=== PATIENT | male | born 1955 | race Caucasian/White ===

== ENCOUNTER → 2019-09-26 12:41 | Outpatient (BNVA) | payer BC, MEDICARE, SELFPAY | PROVIDERS: Visit Provider Internal Medicine | DX: Z20.828 Contact with and (suspected) exposure to other viral communicable diseases (principal) | CPT/HCPCS: 87635 ==

== ENCOUNTER 2020-01-19 06:00 | Outpatient (RCR) | payer MEDICARE, SELFPAY | END 2020-02-16 23:59 | disposition home or self-care (01) | LOC: SPT 06:00 | PROVIDERS: PCP Family Medicine; Referring Provider Family Medicine; Visit Provider Family Medicine | DX: M54.9 Dorsalgia, unspecified (principal) | CPT/HCPCS: 97110; 97161; G0283 ==

== ENCOUNTER 2020-02-17 06:00 | Outpatient (RCR) | payer MEDICARE, SELFPAY | END 2020-02-22 11:35 | disposition home or self-care (01) | LOC: SPT 06:00 | PROVIDERS: PCP Family Medicine; Referring Provider Family Medicine; Visit Provider Family Medicine | DX: M54.89 Other dorsalgia (principal) | CPT/HCPCS: 97110; G0283 ==

== ENCOUNTER 2020-04-17 14:48 | Outpatient (CLI) | payer MEDICARE, SELFPAY ==
--- NOTE | 2020-04-17 15:06 | MR_ITS ---
WS: [id number] MRI LUMBAR SPINE NONCONTRAST TECHNIQUE: Sagittal T1, T2 and STIR imaging. Axial T1 and T2 imaging. CLINICAL INFORMATION: BACK PAIN, CHRONIC COMPARISON: None. FINDINGS: Mild lumbar curve. No acute compression. No high-grade central canal stenosis. L1-L2: Mild annular bulging with slight narrowing of the left subarticular recess. Mild facet arthrop athy. Spinal canal and foramen are patent. L2-L3: Mild annular bulging with slight effacement of the ventral thecal sac. Slight impingement on t he right subarticular recess and traversing right L3 nerve root. Mild left and no significant right f oraminal narrowing. Mild facet arthropathy. L3-L4: Mild disc bulging with slight effacement of ventral thecal sac. Slight impingement right subar ticular recess and traversing right L4 nerve root. Mild left and no significant right foraminal narro wing. L4-L5: Minimal disc bulging. Moderate facet arthropathy. Mild left and no significant right foraminal narrowing. Spinal canal is patent. L5-S1: Mild annular bulging with slight effacement of ventral thecal sac. Mild left and no significan t right foraminal narrowing. Mild facet arthropathy. Spinal canal is patent. Peripelvic renal cysts. MR/MR lumbar spine wo con* [id number] IMPRESSION: 1. Mild lumbar curve. No acute compression. No high-grade central canal stenos is. 2. Mild annular bulging L2-3 and L3-4 with impingement on the right subarticul ar recess and traversing right L3 and L4 nerve roots respectively. 3. Mild foraminal narrowing left L4-L5 and left L5-S1. 4. Mild facet arthropathy L3-L5.
== END 2020-04-17 14:49 | disposition home or self-care (01) ==
LOC: RADWPI 14:53
PROVIDERS: PCP Family Medicine; Visit Provider Family Medicine
DX: G89.29 Other chronic pain (principal); M47.816 Spondylosis without myelopathy or radiculopathy, lumbar region; M51.26 Other intervertebral disc displacement, lumbar region
CPT/HCPCS: 72148

== ENCOUNTER → 2021-07-25 13:24 | Outpatient (BNVA) | payer MEDICARE, SELFPAY | PROVIDERS: PCP Family Medicine; Visit Provider Family Medicine | DX: R35.0 Frequency of micturition (principal); Z00.00 Encounter for general adult medical examination without abnormal findings | CPT/HCPCS: 80053; 80061; 83036; 84153 ==

== ENCOUNTER 2021-08-27 12:31 | Outpatient (CLI) | payer MEDICARE, SELFPAY ==
--- NOTE | 2021-08-27 12:40 | USCV_ITS ---
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
== END 2021-08-27 12:32 | disposition home or self-care (01) ==
LOC: RAD 12:31
PROVIDERS: PCP Family Medicine; Visit Provider Family Medicine
DX: I73.9 Peripheral vascular disease, unspecified (principal)
CPT/HCPCS: 93922

== ENCOUNTER → 2023-11-17 07:39 | Outpatient (BNVA) | payer MEDICARE, SELFPAY | PROVIDERS: PCP Family Medicine; Visit Provider Family Medicine | DX: Z00.00 Encounter for general adult medical examination without abnormal findings (principal); R35.1 Nocturia; E11.9 Type 2 diabetes mellitus without complications | CPT/HCPCS: 80053; 80061; 84153; 84443 ==